=== PATIENT | female | born 1960 ===

== ENCOUNTER 2025-05-02 11:39 | Outpatient (CLI) | payer MEDICARE ==
[2025-05-02] VITALS (19 sets, daily range): BP systolic 75–134; BP diastolic 23–91; PULSE 58–123
== END 2025-05-02 23:59 | disposition home or self-care (01) ==
LOC: CARD DIAG 11:39
PROVIDERS: ATTEND Internal Medicine Interventional Cardiology
DX: R42 Dizziness and giddiness (principal)
CPT/HCPCS: 93660